=== PATIENT | male | born 1985 | race African-American/Black ===

== ENCOUNTER 2022-08-25 23:39 | Inpatient (IN) | payer MEDICAID, OTHER ==
[~2022-08-25] VITALS: Ht 177.8 cm; Wt 72.8 kg
[2022-08-26] MEDS ORDERED: LEVETIRACETAM 500MG PREMIX 100 ML IV ONE (00:30)
[2022-08-26] MEDS ORDERED: SODIUM CHLORIDE 0.9% 1,000 ML IV ONE (00:30)
[2022-08-26] MEDS ORDERED: LORAZEPAM 2MG/ML CPJ IV ONE (00:30)
[2022-08-26 00:48] LABS: BASOPHILS % 0.3 % (0.0-2.0); EOSINOPHILS % 0.1 % (0.0-5.0); HEMATOCRIT. 48.5 % (42.0-52.0); HEMOGLOBIN. 15.7 g/dL (14.0-18.0); LYMPHOCYTES % 39.4 % (20.0-50.0); MEAN CORPUSCULAR HEMOGLOBIN 31.3 pg (28.0-32.0); MEAN CORPUSCULAR VOLUME 96.3 fL (80.0-94.0); MEAN PLATELET VOLUME 6.7 fl (7.4-10.4); NEUTROPHILS % 54.2 % (40.0-76.0); PLATELET 266 x1000/uL (130-400); RED BLOOD CELL COUNT 5.03 mill/uL (4.7-6.1); RED CELL DISTRIBUTION WIDTH 14.5 % (11.6-14.6)
[2022-08-26 00:54] LABS: CHLORIDE 109 mEq/L (98-107)
[2022-08-26 01:02] LABS: ETHANOL BLOOD 295 mg/dL
[2022-08-26] MEDS ORDERED: DEXTROSE 50% WATER 50ML SYRINGE IV ONE ×3 (04:15→07:15)
[2022-08-26] MEDS ORDERED: LORAZEPAM 2MG/ML CPJ IV PRN (11:00)
[2022-08-26] MEDS ORDERED: ONDANSETRON HCL 4MG/2ML INJ IV PRN (11:00)
[2022-08-26] MEDS ORDERED: DOCUSATE SODIUM 100MG CAPSULE PO PRN (11:00)
[2022-08-26] MEDS ORDERED: DEXT 5%/0.45% NACL 1000ML 1,000 ML IV SCH (11:00)
[2022-08-26] MEDS ORDERED: FOLIC ACID 1MG TABLET PO SCH (12:00)
[2022-08-26] MEDS ORDERED: MULTIVITAMINS,THER W-MINERALS TABLET PO SCH (12:00)
[2022-08-26] MEDS ORDERED: THIAMINE HCL 100MG TABLET PO SCH (12:00)
[2022-08-26] MEDS ORDERED: PANTOPRAZOLE 40MG DR TABLET PO SCH (12:00)
[2022-08-26] MEDS ORDERED: CHLORDIAZEPOXIDE 5 MG CAPSULE PO SCH (12:00)
[2022-08-26] MEDS ORDERED: LEVETIRACETAM 500MG PREMIX 100 ML IV SCH (14:00)
[2022-08-26 15:00] VITALS: BP 98/68
[2022-08-26 16:00] VITALS: BP 96/52
[2022-08-26 17:00] LABS: PROTHROMBIN TIME 10.7 sec (9.6-11.0)
[2022-08-28 09:07] LABS: HIV SCREEN 4G Non Reactive (Non Reactive)
[2022-08-31 09:10] LABS: BARBITURATE SCREEN Negative ug/mL (Cutoff:0.1); OPIATES SCREEN Negative ng/mL (Cutoff:5); PHENCYCLIDINE SCREEN Negative ng/mL (Cutoff:8)
[2022-09-07 07:07] LABS: 7-AMINOCLONAZEPAM CONFIRM Negative (.); ALPRAZOLAM CONFIRM Negative (.); BENZODIAZEPINE SCREEN ++POSITIVE++ ng/mL (Cutoff:20); CHLORDIAZEPOXIDE CONFIRM PRESENT (.); CLONAZEPAM CONFIRM Negative (.); DESMETHYLCHLORDIAZEPOXIDE Negative (.); DIAZEPAM CONFIRM Negative (.); FLURAZEPAM CONFIRM Negative (.); LORAZEPAM CONFIRM Negative (.); MIDAZOLAM CONFIRM Negative (.); OXAZEPAM CONFIRM Negative (.); TEMAZEPAM CONFIRM Negative (.); TRIAZOLAM CONFIRM Negative (.)
== END 2022-08-26 19:20 | disposition left against medical advice (07) | DRG 812 ==
LOC: ER 23:39 → MICUSO 08-26 05:02 → 7WST 08-26 13:06
PROVIDERS: ADMIT Internal Medicine; ATTEND Internal Medicine
DX: T50.991A Poisoning by other drugs, medicaments and biological substances, accidental (unintentional), initial encounter (principal); G92.9 Unspecified toxic encephalopathy; E16.2 Hypoglycemia, unspecified; F10.129 Alcohol abuse with intoxication, unspecified; G40.909 Epilepsy, unspecified, not intractable, without status epilepticus; Z53.29 Procedure and treatment not carried out because of patient's decision for other reasons; R74.01 Elevation of levels of liver transaminase levels; Y90.8 Blood alcohol level of 240 mg/100 ml or more; Y92.89 Other specified places as the place of occurrence of the external cause
CPT/HCPCS: 36415; 71045; 80053; 80156; 80165; 80184; 80185; 80307; 80320; 82962; 83880; 84484; 85025; 87389; 93005; 99285; J1953; J2060; J7030; G0480